=== PATIENT | male | born 1965 | race Caucasian/White ===

== ENCOUNTER 2017-03-30 04:01 | Emergency (ER) | payer OTHER ==
[2017-03-30 10:23] VITALS: BP 115/72
== END 2017-03-30 10:23 | disposition home or self-care (01) ==
LOC: ED 04:01
DX: M25.551 Pain in right hip (principal); J45.909 Unspecified asthma, uncomplicated
CPT/HCPCS: J2270; J3360

== ENCOUNTER 2017-10-19 20:04 | Emergency (ER) | payer OTHER ==
[~2017-10-19] VITALS: Ht 177.8 cm; Wt 88.0 kg
[2017-10-19 20:29] VITALS: Ht 177.8 cm; Wt 88.0 kg
[2017-10-19 22:11] VITALS: BP 151/89
== END 2017-10-19 22:11 | disposition home or self-care (01) ==
LOC: ED 20:04
DX: H10.33 Unspecified acute conjunctivitis, bilateral (principal); J45.909 Unspecified asthma, uncomplicated
CPT/HCPCS: 90715

== ENCOUNTER 2017-12-20 15:12 | Emergency (ER) | payer OTHER ==
[~2017-12-20] VITALS: Ht 177.8 cm; Wt 109.8 kg
[2017-12-20 15:29] VITALS: Ht 177.8 cm; Wt 109.8 kg
[2017-12-20 18:30] VITALS: BP 121/71
== END 2017-12-20 18:30 | disposition home or self-care (01) ==
LOC: ED 15:12
DX: J45.901 Unspecified asthma with (acute) exacerbation (principal)
CPT/HCPCS: J7512; J7613

== ENCOUNTER 2018-09-27 14:32 | Emergency (ER) | payer OTHER ==
[~2018-09-27] VITALS: Ht 177.8 cm; Wt 110.7 kg
[2018-09-27 15:05] VITALS: Ht 177.8 cm; Wt 110.7 kg
[2018-09-27 17:10] VITALS: BP 121/72
== END 2018-09-27 17:10 | disposition home or self-care (01) ==
LOC: ED 14:32
DX: S29.011A Strain of muscle and tendon of front wall of thorax, initial encounter (principal); J45.909 Unspecified asthma, uncomplicated; X58.XXXA Exposure to other specified factors, initial encounter; Y93.89 Activity, other specified; Y92.89 Other specified places as the place of occurrence of the external cause; Y99.8 Other external cause status

== ENCOUNTER 2019-08-27 05:06 | Emergency (ER) | payer OTHER ==
[~2019-08-27] VITALS: Ht 154.9 cm; Wt 115.7 kg
[2019-08-27 05:12] VITALS: Ht 154.9 cm; Wt 115.7 kg
[2019-08-27 05:45] VITALS: BP 143/81
== END 2019-08-27 05:57 | disposition home or self-care (01) ==
LOC: ED 05:06
DX: K05.30 Chronic periodontitis, unspecified (principal); J45.909 Unspecified asthma, uncomplicated; E03.9 Hypothyroidism, unspecified
CPT/HCPCS: J3010

== ENCOUNTER 2019-10-19 18:27 | Emergency (ER) | payer OTHER ==
[~2019-10-19] VITALS: Ht 177.8 cm; Wt 116.6 kg
[2019-10-19 19:01] VITALS: BP 155/85; Ht 177.8 cm; Wt 116.6 kg
== END 2019-10-19 21:15 | disposition home or self-care (01) ==
LOC: ED 18:27
DX: H10.32 Unspecified acute conjunctivitis, left eye (principal); J06.9 Acute upper respiratory infection, unspecified; E03.9 Hypothyroidism, unspecified

== ENCOUNTER 2019-10-25 19:28 | Emergency (ER) | payer OTHER ==
[~2019-10-25] VITALS: Ht 177.8 cm; Wt 117.9 kg
[2019-10-25 20:31] VITALS: Ht 177.8 cm; Wt 117.9 kg
[2019-10-25 21:19] LABS: UA SPECIFIC GRAVITY 1.015 (1.005-1.035); microscopic required? YES; urine erythrocyte 2+ (NEGATIVE)
[2019-10-25 21:50] VITALS: BP 127/71
== END 2019-10-25 21:50 | disposition home or self-care (01) ==
LOC: ED 19:28
PROVIDERS: Specialist
DX: N39.0 Urinary tract infection, site not specified (principal); J45.909 Unspecified asthma, uncomplicated; E03.9 Hypothyroidism, unspecified